=== PATIENT | female | born 1955 | race African-American/Black ===

== ENCOUNTER 2016-04-17 10:00 | Inpatient (IN) | payer OTHER ==
[~2016-04-17] VITALS: Ht 157.5 cm; Wt 59.6 kg
[~2016-04-17 10:00] MED LIST: ASPI-482 PO; CARV12.5 PO; CHOL10003 PO; COLE625T2 PO; FENTANYL PF 100 MCG/2 ML VIAL. IV PRN; FERR-26 PO; HYDR-971 PO; HYDROMORPHONE 2 MG/ML VIAL. IV PRN; IV RINGERS,LACTATED 1000ML 1,000 ML IV SCH; LIDOCAINE 1% 1 ML SYRINGE. ID PRN; LISI-338 PO; LOSA25TA4 PO; METF500T4 PO; MORPHINE SULFATE 2 MG/ML DISP.SYRIN. IV PRN; MORPHINE SULFATE 5 MG, KETOROLAC TROMETHAMINE 30 MG, ROPIVacaine 0.5% PF 60 ML, EPINEPH... INT ART ONE; NIFE30TA38 PO; OMEG1CAP6 PO; OMEP20CA4 PO; ONDANSETRON PF 4 MG/2 ML VIAL. IV PRN; OXYC1TAB7 PO; PROCHLORPERAZINE 10 MG/2 ML VIAL. IV PRN; PYRI100T PO; WARF1TAB PO
[2016-05-15] MEDS ORDERED: MORPHINE SULFATE 5 MG, KETOROLAC TROMETHAMINE 30 MG, ROPIVacaine 0.5% PF 60 ML, EPINEPH... INT ART ONE ×5 (06:00)
[2016-05-15] MEDS ORDERED: ONDANSETRON PF 4 MG/2 ML VIAL. IV PRN (07:00)
[2016-05-15] MEDS ORDERED: LIDOCAINE 1% 1 ML SYRINGE. ID PRN (07:00)
[2016-05-15] MEDS ORDERED: IV RINGERS,LACTATED 1000ML 1,000 ML IV SCH (07:00)
[2016-05-15] MEDS ORDERED: FENTANYL PF 100 MCG/2 ML VIAL. IV PRN ×3 (07:00→11:00)
[2016-05-15] MEDS ORDERED: PROCHLORPERAZINE 10 MG/2 ML VIAL. IV PRN ×2 (07:00→11:00)
[2016-05-15] MEDS ORDERED: TRANEXAMIC ACID 1,000 MG in IV NORMAL SALINE 250ML 250 ML INJ ONE ×2 (08:00→11:00)
[2016-05-15] MEDS ORDERED: ONDANSETRON PF 4 MG/2 ML VIAL. ONE (10:26)
[2016-05-15] MEDS ORDERED: ROCURONIUM 50 MG/5 ML VIAL. ONE (10:27)
[2016-05-15] MEDS ORDERED: FAMOTIDINE 20 MG/2 ML VIAL ONE (10:27)
[2016-05-15] MEDS ORDERED: LIDOCAINE 2% 100 MG/5 ML DISP.SYRIN. ONE (10:27)
[2016-05-15] MEDS ORDERED: PROPOFOL 20 ML IV ONE (10:27)
[2016-05-15] MEDS ORDERED: DEXAMETHASONE SOD PHOS 20 MG/5 ML VIAL. ONE (10:27)
[2016-05-15] MEDS ORDERED: FENTANYL PF 250 MCG/5 ML VIAL. ONE (10:29)
[2016-05-15] MEDS ORDERED: CEFAZOLIN 1GM IVPB FOR OMNI 50 ML IV ONE (10:42)
[2016-05-15] MEDS ORDERED: MELO15TA6 PO (10:57)
[2016-05-15] MEDS ORDERED: WARF5TAB PO (10:57)
[2016-05-15] MEDS ORDERED: MELOXICAM 7.5 MG TABLET PO ONE (10:59)
[2016-05-15] MEDS ORDERED: ZOLPIDEM 5 MG TABLET. PO PRN (11:00)
[2016-05-15] MEDS ORDERED: 0.9 % SODIUM CHLORIDE 10 ML DISP.SYRIN. IV PRN (11:00)
[2016-05-15] MEDS ORDERED: HYDROCODONE/APAP 7.5/325MG TABLET. PO PRN (11:00)
[2016-05-15] MEDS ORDERED: MORPHINE SULFATE 10 MG/ML VIAL. IV PRN (11:00)
[2016-05-15] MEDS ORDERED: CALCIUM CARBONATE 500 MG TAB.CHEW PO PRN (11:00)
[2016-05-15] MEDS ORDERED: ACETAMINOPHEN 325 MG TABLET. PO PRN (11:00)
[2016-05-15] MEDS ORDERED: HYDROCODONE/APAP 10/325 TABLET. PO PRN (11:00)
[2016-05-15] MEDS ORDERED: MORPHINE SULFATE 4 MG/ML DISP.SYRIN. IV PRN ×2 (11:00)
[2016-05-15] MEDS ORDERED: DIPHENHYDRAMINE 50 MG/ML VIAL IV PRN (11:00)
[2016-05-15] MEDS ORDERED: OXYCODONE/APAP 5/325 TABLET. PO PRN (11:00)
[2016-05-15] MEDS ORDERED: TRAMADOL 50 MG TABLET. PO PRN ×2 (11:00)
[2016-05-15] MEDS ORDERED: HYDROCODONE/APAP 7.5/325MG TABLET. ONE (11:00)
[2016-05-15] MEDS ORDERED: MORPHINE SULFATE 2 MG/ML DISP.SYRIN. IV PRN (11:00)
[2016-05-15] MEDS ORDERED: DEXTROSE 50% 25 GM / 50ML DISP.SYRIN. IV PRN (11:00)
[2016-05-15] MEDS ORDERED: MELOXICAM PO SCH (11:00)
[2016-05-15 11:13] LABS: INR 1.1 (0.8-1.1); PROTHROMBIN TIME PATIENT 13.7 SEC (11.7-14.0)
--- NOTE | 2016-05-15 11:20 | HP ---
ADMIT DATE: 05/15/2016 CHIEF COMPLAINT: Right hip pain. HISTORY OF PRESENT ILLNESS: The patient has had longstanding right hip pain, worse in the past few months, worse with activities of daily living. She has groin pain, burning in nature and weakness in the right hip, increasingly severe and similar to what she had on the left hip before she underwent left hip arthroplasty with excellent results. She is on her feet all the time at work and continues to do very well in terms of the left hip aside from some mild recent trochanteric bursitis since the right hip has been a bit worse. No major medical problems, just a cold that is now resolved. PAST MEDICAL HISTORY: Significant for diabetes mellitus, hypertension and tendonitis in her shoulder. PAST SURGICAL HISTORY: Significant for a left hip replacement in 10/2014 and a . FAMILY HISTORY: Diabetes in her mother and father. SOCIAL HISTORY: Denies smoking, alcohol or drug use. MEDICATIONS: List is reviewed. ALLERGIES: INCLUDE SULFA DRUGS and SEPTRA. REVIEW OF SYSTEMS: Denies any chest pain, shortness of breath aside from groin pain in the right hip. No radiating pain, focal weakness, numbness, tingling in the extremities. VITAL SIGNS: Stable and documented on the admission sheet. HEENT: Atraumatic, normocephalic. CARDIOVASCULAR: Regular rate and rhythm. LUNGS: Clear to auscultation bilaterally. ABDOMEN: Benign. EXTREMITIES: Examination of the right hip, leg lengths are equal ____ a few millimeters, she has decreased range of motion in all planes on the right with pain on extremes of range of motion, mildly antalgic gait favoring the right hip, well healed incision, excellent range of motion over the left hip. Excellent abductor strength, normal knee and ankle range of motion, alignment, stability with intact motor function, distal pulses, sensation, reflexes, skin in both lower extremities throughout. IMPRESSION: Degenerative osteophytes arthritis, right hip. TREATMENT PLAN: She is familiar with the process given left hip arthroplasty. I told her the difference really is anterior approach at this time, should mitigate some of the hip precautions that she would have to undergo an otherwise a similar course of recovery. We went over again the possibility of infection, premature wear or loosening, instability, nerve or blood vessel damage, medical or other anesthetic complications including blood clots. All her questions were answered. She wants to proceed with surgical evaluation and treatment. Consent was obtained and joint center admission will occur following surgery. LORA MENJIVAR MD DR: MARIA C/bashir JOB#: [id number] / [id number]
[2016-05-15] MEDS ORDERED: KETOROLAC TROMETHAMINE 10 MG TABLET PO SCH (12:00)
[2016-05-15] MEDS ORDERED: SEVOFLURANE > 120 MINUTES. IH ONE (14:07)
[2016-05-15] MEDS ORDERED: NEOSTIGMINE METHYLSULFATE 5 MG/5 ML SYRINGE. ONE (14:08)
[2016-05-15] MEDS ORDERED: GLYCOPYRROLATE 1 MG/5 ML VIAL. ONE (14:08)
--- NOTE | 2016-05-15 14:32 | PDOC ---
BRIEF OPERATIVE NOTE Date: May 15, 2016 Pre-Op Diagnosis djd right hip Post-Op Diagnosis same Procedure Performed Right total hip arthroplasty Surgeon Imelda Anesthesia Type: General Blood Loss 250cc Specimens Obtained femoral head to pathology Findings above Complications proximal femur crack stabilized with cables LORA MENJIVAR MD May 15, 2016 14:32
[2016-05-15] MEDS: FENTANYL PF 100 MCG/2 ML VIAL. IV PRN ×4 (14:42→15:16)
[2016-05-15] MEDS: MORPHINE SULFATE 2 MG/ML DISP.SYRIN. IV PRN ×4 (14:56→16:21)
[2016-05-15] MEDS: HYDROMORPHONE 2 MG/ML VIAL. IV PRN ×4 (15:21→16:00)
--- NOTE | 2016-05-15 15:23 | RAD ---
Pelvis and right hip radiographs History: Postoperative right total hip arthroplasty. Comparison: 10/19/2014. Findings: AP view of the pelvis including both hips. Crosstable lateral view of right hip. There has been interval placement of right total hip arthroplasty. There is at least one acetabular screw. 2 cerclage wires are also seen. Relationship of the femoral head component to the acetabular cup appears anatomic. Soft tissue gas and surgical skin john are compatible with recent postoperative status. Both hips demonstrate protrusio acetabuli deformities. Since previous study, there is interval development of a large amount of heterotopic ossification about the left hip. Impression: Postoperative changes of right total hip arthroplasty.
[2016-05-15 16:45] VITALS: BP 134/70
[2016-05-15] MEDS ORDERED: FERROUS SULFATE 325 MG TABLET PO SCH (17:00)
[2016-05-15] MEDS: CARVEDILOL 12.5 MG TABLET PO SCH (17:00)
[2016-05-15 17:15] VITALS: BP 128/68
[2016-05-15 17:45] VITALS: BP 130/71
[2016-05-15] MEDS ORDERED: WARFARIN 7.5 MG TABLET. PO ONE (18:00)
[2016-05-15 18:15] VITALS: BP 127/69
[2016-05-15 18:45] VITALS: BP 128/63
[2016-05-15] MEDS: CEFAZOLIN SODIUM 1 GM in IV NORMAL SALINE 50ML 50 ML IV SCH (18:54)
[2016-05-15] MEDS: IV DEXTROSE 5 %-0.45 % NACL 1,000 ML IV SCH ×2 (19:30→20:50)
[2016-05-15] MEDS: OXYCODONE ER 10 MG TAB.ER.12H. PO SCH (19:32)
[2016-05-15] MEDS: KETOROLAC TROMETHAMINE 30 MG, BUPIVACAINE MPF 0.25% 20 ML, EPINEPHRINE 0.5 MG in TOTAL ... INT ART SCH (19:34)
[2016-05-15] MEDS: ASPIRIN ENTERIC COATED 81 MG TABLET.DR. PO SCH (20:42)
[2016-05-15] MEDS: CHOLECALCIFEROL (VITAMIN D3) 1,000 UNIT TABLET PO SCH (20:42)
[2016-05-15 23:00] VITALS: BP 119/69
[2016-05-16] MEDS: CEFAZOLIN SODIUM 1 GM in IV NORMAL SALINE 50ML 50 ML IV SCH ×2 (01:08→05:08)
[2016-05-16 03:30] VITALS: BP 111/63
[2016-05-16] MEDS: KETOROLAC TROMETHAMINE 30 MG, BUPIVACAINE MPF 0.25% 20 ML, EPINEPHRINE 0.5 MG in TOTAL ... INT ART SCH (05:09)
[2016-05-16 05:43] LABS: INR 1.3 (0.8-1.1); PROTHROMBIN TIME PATIENT 15.7 SEC (11.7-14.0)
[2016-05-16] MEDS ORDERED: MAGNESIUM HYDROXIDE 2,400 MG/30 ML ORAL.SUSP. PO PRN (06:00)
[2016-05-16] MEDS: IV DEXTROSE 5 %-0.45 % NACL 1,000 ML IV SCH ×3 (06:50→22:08)
[2016-05-16 06:57] VITALS: BP 111/63
[2016-05-16 07:55] LABS: HEMATOCRIT 28.1 % (36.0-47.0)
[2016-05-16] MEDS: SENNOSIDES/DOCUSATE 8.6/50MG TABLET. PO SCH (08:01)
[2016-05-16] MEDS: CARVEDILOL 12.5 MG TABLET PO SCH ×2 (08:01→17:14)
[2016-05-16] MEDS: MULTIVITAMIN with MINERAL TABLET. PO SCH (08:02)
[2016-05-16] MEDS: PYRIDOXINE 50 MG TABLET. PO SCH (08:02)
[2016-05-16] MEDS: FERROUS SULFATE 325 MG TABLET PO SCH ×3 (08:02→17:14)
[2016-05-16 08:28] VITALS: BP 128/86
[2016-05-16] MEDS: LOSARTAN POTASSIUM 25 MG TABLET. PO SCH (09:00)
[2016-05-16] MEDS: NIFEDIPINE ER 30 MG TAB.ER.24H PO SCH (11:21)
[2016-05-16 11:22] VITALS: BP 121/59
--- NOTE | 2016-05-16 12:04 | PDOC ---
PROGRESS NOTES Subjective Subjective Problems overnight: Overall pain well controlled doing well no complaints Objective Vital Signs Vital Signs Date Time Temp Pulse Resp B/P Pulse Ox O2 Delivery O2 Flow Rate FiO2 05/16/16 11:22 97.5 59 20 121/59 Room Air 97.5 05/16/16 06:57 100 05/15/16 14:48 10.0 Physical Exam Leg lengths clinically equal distal neurovascular status intact pain catheter drain and dressing clean dry intact Labs Laboratory Tests Test 05/15/16 10:45 05/15/16 11:09 05/15/16 16:31 05/16/16 04:45 Prothrombin Time 13.7SEC (11.7-14.0) 15.7SEC (11.7-14.0) Prothromb Time International Ratio 1.1 (0.8-1.1) 1.3 (0.8-1.1) Activated Partial Thromboplast Time 35SEC (24-38) Glucose (Fingerstick) 129mg/dL (70-99) 166mg/dL (70-99) Hemoglobin 9.0g/dL (12.0-15.5) Hematocrit 28.1% (36.0-47.0) Mean Corpuscular Hemoglobin Concent 32g/dL (31-37) Laboratory Tests Test 05/15/16 16:31 05/16/16 04:45 Glucose (Fingerstick) 166mg/dL (70-99) Hemoglobin 9.0g/dL (12.0-15.5) Hematocrit 28.1% (36.0-47.0) Mean Corpuscular Hemoglobin Concent 32g/dL (31-37) Prothrombin Time 15.7SEC (11.7-14.0) Prothromb Time International Ratio 1.3 (0.8-1.1) Imaging Postoperative x-rays show adequate fixation of a proximal femur fracture with cable fixation and well-placed total hip arthroplasty Assessment Assessment POD# [1], S/P [right total hip arthroplasty] Problems: Plan Plan of Care Weightbearing as tolerated no hip precautions needed due to anterior approach Coumadin anticoagulation Continue progress with physical therapy Placement versus home on Saturday expected based on progress with PT LORA MENJIVAR MD May 16, 2016 12:04
[2016-05-16] MEDS: OXYCODONE/APAP 7.5/325 TABLET. PO PRN ×2 (14:53→20:39)
[2016-05-16 15:16] VITALS: BP 89/37
[2016-05-16] MEDS ORDERED: WARFARIN 5 MG TABLET. PO ONE (16:00)
[2016-05-16] MEDS ORDERED: BISACODYL 10 MG SUPP.RECT PR PRN (16:00)
[2016-05-16] MEDS: OXYCODONE ER 10 MG TAB.ER.12H. PO SCH (17:16)
[2016-05-16 18:03] VITALS: BP 128/76
[2016-05-16] MEDS: ASPIRIN ENTERIC COATED 81 MG TABLET.DR. PO SCH (20:39)
[2016-05-16] MEDS: CHOLECALCIFEROL (VITAMIN D3) 1,000 UNIT TABLET PO SCH (20:39)
[2016-05-17] MEDS: OXYCODONE/APAP 7.5/325 TABLET. PO PRN ×5 (01:19→22:18)
[2016-05-17 05:30] VITALS: BP 107/65
[2016-05-17 06:23] LABS: HEMATOCRIT 25.9 % (36.0-47.0); HEMOGLOBIN 8.5 g/dL (12.0-15.5)
[2016-05-17 06:54] LABS: INR 1.9 (0.8-1.1); PROTHROMBIN TIME PATIENT 20.8 SEC (11.7-14.0)
[2016-05-17] MEDS: NIFEDIPINE ER 30 MG TAB.ER.24H PO SCH (08:00)
[2016-05-17] MEDS: PYRIDOXINE 50 MG TABLET. PO SCH (08:56)
[2016-05-17] MEDS: MULTIVITAMIN with MINERAL TABLET. PO SCH (08:57)
[2016-05-17] MEDS: FERROUS SULFATE 325 MG TABLET PO SCH ×3 (08:57→17:29)
[2016-05-17] MEDS: SENNOSIDES/DOCUSATE 8.6/50MG TABLET. PO SCH (08:57)
[2016-05-17] MEDS: LOSARTAN POTASSIUM 25 MG TABLET. PO SCH (08:59)
[2016-05-17] MEDS: CARVEDILOL 12.5 MG TABLET PO SCH ×2 (08:59→17:30)
--- NOTE | 2016-05-17 10:08 | PDOC ---
ORTHO PROGRESS NOTES Subjective Vibha is doing well. Pain is well-controlled with pain medication. Participating in therapy and progressing well. Complains of some swelling in her leg but she understands that this is expected and will resolve with time. Denies any chest pain or shortness of breath. Denies any numbness or tingling. Post-op Day: 2 (Right total hip arthroplasty) Vitals Vital Signs Date Time Temp Pulse Resp B/P Pulse Ox O2 Delivery O2 Flow Rate FiO2 05/17/16 08:59 113 107/65 05/17/16 08:57 18 Room Air 05/17/16 05:30 98.4 95 98.4 Labs Laboratory Tests Test 05/15/16 10:45 05/15/16 11:09 05/15/16 16:31 05/16/16 04:45 Prothrombin Time 13.7SEC (11.7-14.0) 15.7SEC (11.7-14.0) Prothromb Time International Ratio 1.1 (0.8-1.1) 1.3 (0.8-1.1) Activated Partial Thromboplast Time 35SEC (24-38) Glucose (Fingerstick) 129mg/dL (70-99) 166mg/dL (70-99) Hemoglobin 9.0g/dL (12.0-15.5) Hematocrit 28.1% (36.0-47.0) Mean Corpuscular Hemoglobin Concent 32g/dL (31-37) Test 05/17/16 05:00 Hemoglobin 8.5g/dL (12.0-15.5) Hematocrit 25.9% (36.0-47.0) Mean Corpuscular Hemoglobin Concent 33g/dL (31-37) Prothrombin Time 20.8SEC (11.7-14.0) Prothromb Time International Ratio 1.9 (0.8-1.1) Laboratory Tests Test 05/17/16 05:00 Hemoglobin 8.5g/dL (12.0-15.5) Hematocrit 25.9% (36.0-47.0) Mean Corpuscular Hemoglobin Concent 33g/dL (31-37) Prothrombin Time 20.8SEC (11.7-14.0) Prothromb Time International Ratio 1.9 (0.8-1.1) Notes Patient is awake and alert sitting up in chair. Breathing unlabored, no acute distress. Incision covered with dressing. Slight erythema noted around the incision but no tenderness. No drainage. Neurovascular intact right lower extremity. Problems: (1) Degenerative joint disease of right hip Assessment and Plan Continue PT/OT weightbearing as tolerated Anticoagulation per pharmacy Anticipate discharge tomorrow Pain controlled Problem Qualifiers (1) Degenerative joint disease of right hip: Osteoarthritis type: primary Qualified Code: M16.11 - Unilateral primary osteoarthritis, right hip ZAY ZHENG COMM[employer]CIAL SALES REPRESENTATIVE May 17, 2016 10:08
[2016-05-17] MEDS ORDERED: WARFARIN 2 MG TABLET. PO ONE (16:00)
[2016-05-17 17:15] VITALS: BP 120/74
[2016-05-17] MEDS: OXYCODONE ER 10 MG TAB.ER.12H. PO SCH (17:30)
[2016-05-17] MEDS: ASPIRIN ENTERIC COATED 81 MG TABLET.DR. PO SCH (21:03)
[2016-05-17] MEDS: CHOLECALCIFEROL (VITAMIN D3) 1,000 UNIT TABLET PO SCH (21:03)
[2016-05-18 05:00] VITALS: BP 118/72
[2016-05-18 05:52] LABS: INR 1.9 (0.8-1.1); PROTHROMBIN TIME PATIENT 20.3 SEC (11.7-14.0)
[2016-05-18 06:00] VITALS: BP 118/72
[2016-05-18] MEDS: OXYCODONE/APAP 7.5/325 TABLET. PO PRN ×3 (07:24→14:42)
[2016-05-18] MEDS: MULTIVITAMIN with MINERAL TABLET. PO SCH (09:34)
[2016-05-18] MEDS: PYRIDOXINE 50 MG TABLET. PO SCH (09:34)
[2016-05-18] MEDS: FERROUS SULFATE 325 MG TABLET PO SCH ×2 (09:34→11:58)
[2016-05-18] MEDS: SENNOSIDES/DOCUSATE 8.6/50MG TABLET. PO SCH (09:34)
[2016-05-18] MEDS: LOSARTAN POTASSIUM 25 MG TABLET. PO SCH (09:35)
[2016-05-18] MEDS: CARVEDILOL 12.5 MG TABLET PO SCH (09:36)
[2016-05-18 09:39] LABS: HEMATOCRIT 25.6 % (36.0-47.0); HEMOGLOBIN 8.5 g/dL (12.0-15.5)
[2016-05-18] MEDS: NIFEDIPINE ER 30 MG TAB.ER.24H PO SCH (11:23)
[2016-05-18 11:58] VITALS: BP 119/66
--- NOTE | 2016-05-18 13:35 | PATHOLOGY ---
PATHOLOGY REPORT * * * * * * * * FINAL DIAGNOSIS: Femoral head, right total hip arthroplasty: - Advanced degenerative arthritis. (JPM:csd; d/t: 05/18/2016) REPORT ELECTRONICALLY SIGNED BY: Brody Ybarra M.D. DATE/TIME: 05/18/2016 13:31 * * * * * * * * GROSS PATHOLOGY: Received in formalin labeled "Minh Golden, left hip bone and tissue," is a femoral head measuring 4.1 x 4.1 x 4.6 cm in maximum dimensions. The articular surface is pale london to light london in appearance with evidence of eburnation. Sectioning the bone reveals light london cut surfaces. C[place] Cleaner tissue is submitted in cassette A1, following decalcification. (CAA; 05/16/2016) INITIAL CPT CODE(S): A; 74517, 81534 Professional services [place] [facility] [place] [address] Technical services performed by [facility] at [address] [place] [address], [facility] [address] [place] [address]. Segura [phone] SPECIMEN(S) RECEIVED: A.Right hip bone and tissue CLINICAL HISTORY: Right hip osteoarthritis PATIENT: MINH GOLDEN V /AGE: 105/19/1955 (Age: 60) PATIENT #: [id number] ALT CASE #: SPECIMEN COLLECTION DATE: 05/15/2016 SPECIMEN RECEIVED DATE: 05/16/2016 [facility] - [address] [place] [address] - PHONE: [phone] * * * END OF REPORT * * *
[2016-05-18] MEDS ORDERED: WARFARIN 2 MG TABLET. PO SCH (16:00)
--- NOTE | 2016-05-18 22:21 | DS ---
DATE OF DISCHARGE: 05/18/2016 PRINCIPAL DIAGNOSIS: Degenerative joint disease of right hip. PROCEDURE: Right total hip arthroplasty. DISCHARGE MEDICATIONS: Include Coumadin per anticoagulation clinic and Percocet 7.5/325 one p.o. q. 4 hours p.r.n. pain. DISPOSITION: To [facility] nursing [facility]. DISCHARGE INSTRUCTIONS: Include weightbearing as tolerated. No hip precautions necessary. Report any redness, drainage, fever, chills, uncontrolled pain, or other problems. BRIEF DESCRIPTION OF HOSPITAL COURSE: The patient underwent an uncomplicated right total hip arthroplasty aside from a proximal femur fracture which was wired and she was allowed full weightbearing postoperatively. Postoperatively, hemoglobin was stable. She proceeded well with physical therapy, maintaining safe ambulation. Vital signs and laboratory results were stable throughout as well. Pain was well controlled. Her main concern was that she really was alone at home and any family that would help normally would be away and needed extra safety of the long-term facility and was therefore discharged in medically stable condition. LORA MENJIVAR MD DR: MARIA C/bashir JOB#: [id number] / [id number]
--- NOTE | 2016-05-21 20:29 | OP ---
DATE OF SURGERY: 05/15/2016 PREOPERATIVE DIAGNOSIS: Degenerative joint disease of right hip. POSTOPERATIVE DIAGNOSIS: Degenerative joint disease of right hip. PROCEDURE: Right total hip arthroplasty with cable fixation of a proximal femur fracture. SURGEON: Roverto Segura MD ANESTHESIA: General. ESTIMATED BLOOD LOSS: 250 mL. COMPLICATIONS: Proximal femur fracture as noted above with cerclage fixation. OPERATIVE INDICATIONS: The patient is a 60-year-old female that had previously undergone left total hip arthroplasty and recovered very nicely, has now right hip pain, limited range of motion and significant degenerative changes noted on x-ray, unresponsive to nonoperative treatment and severely limiting her activities of daily living. She is familiar with the recovery process and risks, benefits, postoperative course which were again reviewed with her including the possibility of fracture, leg length discrepancy, premature wear, loosening, instability, leg lengthening quality, nerve or blood vessel damage, medical or other anesthetic complications among others. All her questions were answered, consent was obtained and she agrees to proceed with operative evaluation and treatment. OPERATIVE TECHNIQUE: The patient was identified, procedure verified, the patient placed on the supine position on operating table. After adequate amounts of general endotracheal anesthesia were administered, both lower extremities were placed in traction boots and a table was positioned with only gentle traction for positioning initially. The right hip was then prepped and draped in a standard sterile fashion and after timeout was performed, procedure was identified and verified to the right total hip arthroplasty. Fluoroscopic guidance was used to intraoperatively assess leg lengths and an incision was made from just proximal to the greater trochanter to the lesser trochanter along the lateral aspect of the greater trochanter. Dissection carried out down to the iliotibial band which was taken laterally and fascia was taken medially and pericapsular fat was excised after coagulation of the circumflex vessels with Aquamantys device. Hip capsule was split in a T-fashion. Retractors were placed inside the capsule and the hip capsule was released to a bit beyond the 6 o'clock position and the 12 o'clock position to allow visualization, the femoral neck cut was made under fluoroscopic guidance in a napkin ring type fashion and femoral head was removed and sized. Successive size reaming was then carried out up to a size 50, at which point excellent acetabulum for ingrowth, a size 52 Roni Continuum cluster hole cup was then placed in proper version and inclination visually and per fluoroscopic guidance and fixed with a single superiorly directed screw into the posterior column. A 36 mm standard liner was then placed for trialing purposes and the femur was then brought in to external rotation. Further capsular release was carried out and the hip was brought into an extended adducted position. The starting point was established in the proximal femur with the rat tail rasp, box osteotome and a size 1 Roni Avenir broach was expected to use a size 1 based on preoperative templating and the use of a similar size on the contralateral side. After seating of the broach, trial fitting was carried out with a plus 0 and minus 3.5 trial femoral head. She is noted to be significantly tight with the plus 0 initially. The excellent stability on leg length and offset were maintained. Unfortunately, however, on dislocating the hip to remove the trial components, a proximal femur fracture was noted involving the calcar area which was cabled with Roni cerclage cables reinforcing the calcar and greater trochanter. Trial component was then removed and a size 1 standard Avenir broach was fitted following placement of a 36 mm vitamin E polyethylene which was then packed into place. Following the provisional tightening of the cerclage cables, Avenir broach was tapped in place and had good fit. Cerclage cables were then tightened down and secured. Based on the seating, a plus 0 36 mm ceramic femoral head was tapped in place to engage the Baldemar taper and was reduced and noted to have good reproduction of leg length, anatomic offset and stability. The fractures were well fixed with the cerclage fixation. Thorough irrigation carried out with normal saline solution. Excellent stability was noted throughout range of motion and the fascia was closed with buried Vicryl suture, subcutaneous closure with buried Vicryl suture, skin closure with john. Sterile dressings were applied. The patient was extubated, transferred to postop holding in stable condition having tolerated procedure well. ROVERTO SEGURA MD DR: MARIA C/bashir JOB#: [id number] / [id number]
== END 2016-05-18 15:00 | DRG 470 ==
LOC: OPSVCIP 05-15 10:11 → 4 SOUTHEST 05-15 16:45
PROVIDERS: ADMIT Orthopaedic Surgery; ATTEND Orthopaedic Surgery
PROC: 0SR90JA Replacement of Right Hip Joint with Synthetic Substitute, Uncemented, Open Approach (ICD-10-PCS; principal; 2016-05-16)
DX: M16.11 Unilateral primary osteoarthritis, right hip (principal); Z96.642 Presence of left artificial hip joint; E11.9 Type 2 diabetes mellitus without complications; I10 Essential (primary) hypertension; Z83.3 Family history of diabetes mellitus; Z88.2 Allergy status to sulfonamides; Z88.8 Allergy status to other drugs, medicaments and biological substances
CPT/HCPCS: 36415; 73501; 76000; 82947; 85014; 85018; 85610; 85730; 86850; 86900; 86901; 88304; 88311; C1713; J0171; J0690; J1100; J1170; J1885; J2270; J2405; J2704; J2710; J2795; J3010; J3490; J7030; J7050; J7120; S0028; 97116; 97150; 97530; 97535